=== PATIENT | female | born 1985 | race Caucasian/White ===

== ENCOUNTER 2020-08-27 22:48 | Emergency (ER) | payer BC, OTHER ==
[2020-08-27 22:56] VITALS: BP 140/89; PULSE 88; TEMP 98.1; BMI 31.3
--- NOTE | 2020-08-27 23:04 | PDOC ---
History of Present Illness - General Chief Complaint: Pain, Acute Stated Complaint: ,CRAMPING AND SPOTTING Time Seen by Provider: 08/27/20 22:56 History Source: Patient Exam Limitations: No Limitations - History of Present Illness Initial Comments: 08/27/20 22:56 This is a 35-year-old female who is approximately 7 weeks with her first . Patient is complaining of some mild cramping abdominal pain and pinkish spotting x1 day. Patient denies any bleeding or passage of clots. Patient said her is otherwise unremarkable.. Allergies: as per nursing notes Past Medical History: none Social history: Lives with family. No smoking. No alcohol. No illicit drugs. Surgical history: None General: No fevers or chills, no weakness, no weight loss HEENT: No change in vision. No sore throat,. No ear pain CardioVascular: no chest discomfort. No shortness of breath Respiratory:No cough, or wheezing. Gastrointestinal: no nausea, vomiting, diarrhea or constipation, No rectal bleeding Genitourinary: No dysuria, hematuria, or frequency [employer] SALES AGENT: Vaginal spotting Musculoskeletal: No joint or muscle pain or swelling Neurologic: No headache, vertigo, dizziness or loss of consciousness Psychiatric: nor depression Skin: No rashes or easy bruising Endocrine: no increased thirst or abnormal weight change Allergic: no skin or latex allergy All other systems reviewed and normal Exam: General: Well-nourished well-developed individual, no acute distress HEENT: Throat: Normal, tonsils normal, no erythema or exudate Neck: Supple, no meningeal signs, no lymphadenopathy Eyes::Pupils equal reactive and round, extraocular motion intact Abdomen: Soft, nondistended, normal bowel sounds, there is no tenderness on palpation diffusely Pelvic exam: The os is closed there is a small amount of pinkish discharge on my examining fingers otherwise normal Extremities: Warm, dry, no cyanosis, clubbing, or edema Skin: No rashes Neuro: Alert and oriented x3, CN II - XII intact, nonfocal exam with normal strength, normal sensation, normal reflexes, normal gait, Psych: Normal mood and affect Plan: This is a 35-year-old female with vaginal spotting. Ultrasound ordered CBC, comp type and screen and UA also sent. 08/28/20 00:53 Patient's ultrasound report as per the tech was there is an intrauterine with a heart rate of 108 and a mass of some sort on the left ovary. She was made aware of these findings and will follow-up with her OB in the morning. Past History - Medical History Allergies/Adverse Reactions: Allergies Allergy/AdvReac Type Severity Reaction Status Date / Time No Known Allergies Allergy Verified 08/27/20 22:49 Home Medications: Ambulatory Orders NK [No Known Home Medication] 08/27/20 COPD: No - Reproductive History Is Patient Now?: Yes - Immunization History Immunization Up to Date: No - Psycho-Social/Smoking History Smoking History: Never smoked Have you smoked in the past 12 months: No Number of Cigarettes Smoked Daily: 0 Information on smoking cessation initiated: No - Substance Abuse Hx (Audit-C & DAST Scrn) How often the patient has a drink containing alcohol: Never Score: In Men: 4 or > Positive; In Women: 3 or > Positive: 0 Screen Result (Pos requires Nsg. Audit-10AR): Negative In the last yr the pt used illegal drug/Rx for NonMed reason: No Score: Yes response is considered Positive: 0 Screen Result (Positive result requires Nsg. DAST-10): Negative *Physical Exam - Vital Signs Last Vital Signs Temp Pulse Resp BP Pulse Ox 98.1 F 88 16 140/89 100 08/27/20 22:52 08/27/20 22:52 08/27/20 22:52 08/27/20 22:52 08/27/20 22:52 ED Treatment Course - LABORATORY CBC & Chemistry Diagram: 08/27/20 23:00 08/28/20 01:00 Discharge - Discharge Information Problems reviewed: Yes Clinical Impression/Diagnosis: Vaginal spotting Condition: Stable Disposition: HOME - Admission No - Follow up/Referral - Patient Discharge Instructions Patient Printed Discharge Instructions: Threatened Miscarriage Additional Instructions: Tylenol as needed for pain. FolLow up with your OB call your OB in the morning and get an appointment to follow-up within the next 24 to 48 hours if at all possible regarding the abnormal Finding regarding your left ovary. If you develop pain in the area of your left ovary it is important that you come back for reevaluation or see your CONNECTION WORKER. Return to the emergency department immediately with ANY new, persistent or worsening symptoms. Continue any medications as previously prescribed by your physician. You should follow up with your primary doctor as soon as possible regarding today's emergency department visit. . Please make sure your doctor reviews the results of your emergency evaluation. Thank you for coming to the Emergency Department today for your care. It was a pleasure to see you today. Please note that your evaluation is INCOMPLETE until you follow-up with your doctor. - Post Discharge Activity
[2020-08-27 23:22] LABS: BASO % 0.6 % (0-2.0); EOS % 3.5 % (0-4.5); HEMOGLOBIN 12.3 GM/dl (10.7-15.3); LYMPH % 34.9 % (8-40); MCH 29.8 pg (25.7-33.7); MEAN CELL VOLUME 87.6 fl (80-96); MEAN PLT VOLUME 8.3 fl (7.5-11.1); PLATELET COUNT 321 K/MM3 (134-434); RBC 4.11 M/mm3 (3.60-5.2); RDW 12.6 % (11.6-15.6); WHITE BLOOD COUNT 8.7 K/mm3 (4.0-10.8)
[2020-08-28 03:09] LABS: ALBUMIN 3.7 g/dl (3.4-5.0); BILIRUBIN,TOTAL 0.4 mg/dL (0.2-1); BLOOD UREA NITROGEN 11.7 mg/dL (7-18); CALCIUM 9.1 mg/dL (8.5-10.1); CREATININE 0.5 mg/dL (0.55-1.3); TOT PROT 7.5 g/dl (6.4-8.2)
[2020-08-28 13:32] LABS: AMORP URATES 1+ /hpf (NONE SEEN); EPITHELIAL CELLS RARE /hpf
== END 2020-08-28 01:00 | disposition home or self-care (01) ==
LOC: FER 22:48
DX: N93.9 Abnormal uterine and vaginal bleeding, unspecified (principal)
CPT/HCPCS: 36415; 76815; 80053; 81003; 81015; 84702; 85025; 86850; 86900; 86901; 87086; 99284-25

== ENCOUNTER 2020-12-21 17:24 | Emergency (ER) | payer BC ==
[2020-12-21 17:34] VITALS: BP 141/83; PULSE 97; TEMP 98.2; BMI 32.8
[2020-12-21] MEDS ORDERED: ACETAMINOPHEN 500 MG TABLET (FP) PO ONE (17:36)
[2020-12-21] MEDS ORDERED: ACETAMINOPHEN 325 MG TABLET (FP) ONE (18:03)
== END 2020-12-21 18:11 | disposition home or self-care (01) ==
LOC: FER 17:24
DX: R51.9 Headache, unspecified (principal)
CPT/HCPCS: 99283-25